=== PATIENT | female | born 1995 | race Caucasian/White ===

== ENCOUNTER 2021-01-29 16:28 | Emergency (ER) | payer OTHER ==
[2021-01-29] MEDS ORDERED: AUGMENTIN 875-1 EACH PO (18:39)
== END 2021-01-29 18:51 | disposition home or self-care (01) ==
LOC: ER1 16:28
DX: S61.452A Open bite of left hand, initial encounter (principal); F17.290 Nicotine dependence, other tobacco product, uncomplicated; W54.0XXA Bitten by dog, initial encounter
CPT/HCPCS: 90715; 99283